=== PATIENT | male | born 1950 | race Asian ===

== ENCOUNTER → 2016-12-28 | Outpatient (RCR) | payer OTHER | END | disposition home or self-care (01) | LOC: PTY 11:00 | PROVIDERS: ATTEND Internal Medicine | DX: M75.31 Calcific tendinitis of right shoulder (principal); M25.511 Pain in right shoulder; M76.61 Achilles tendinitis, right leg ==

== ENCOUNTER 2017-01-05 13:40 | Outpatient (RCR) | payer OTHER | END 2017-01-25 | disposition home or self-care (01) | LOC: PTY 13:40 | PROVIDERS: ATTEND Internal Medicine | DX: M75.31 Calcific tendinitis of right shoulder (principal); M76.61 Achilles tendinitis, right leg ==

== ENCOUNTER 2017-01-26 14:30 | Outpatient (RCR) | payer OTHER | END 2017-02-25 | disposition home or self-care (01) | LOC: PTY 14:30 | PROVIDERS: ATTEND Internal Medicine | DX: M75.31 Calcific tendinitis of right shoulder (principal) ==